=== PATIENT | male | born 1985 | race Caucasian/White ===

== ENCOUNTER → 2019-04-05 | Outpatient (CLI) | payer OTHER ==
--- NOTE | 2019-04-05 09:01 | MR ---
EXAMINATION TYPE: MR lumbar spine wo con DATE OF EXAM: 04/05/2019 COMPARISON: NONE HISTORY: Lumbar disc prolapse with radiculopathy per order. Low back pain intermittent for 11 months going into right buttocks and thigh. TECHNIQUE: Multiplanar, multisequence imaging of the lumbar spine is performed without IV contrast. I V contrast not given as requested as patient refused. FINDINGS: Sagittal images of the lumbar spine show vertebral body heights and alignment to appear sat isfactory. Mild disc space narrowing and disc desiccation L4-L5 level.. Mild disc space narrowing L5- S1 level with normal hydration. The conus medullaris is normal in position and signal. The bone mar row signal intensity is within normal limits. Axial images show the T12-L1, L1-L2, and L2-L3 levels all to appear within normal limits. Axial images at the L3-L4 level mild broad disc bulge with right paracentral disc protrusion effacing anterior thecal sac on axial image 13, bilateral neural foramina remain patent. Axial images at L4-L5 level shows broad disc bulge with right paracentral/foraminal disc protrusion c omponent effacing anterolateral thecal sac on axial image 9, there is mild bilateral anterior inferio r neural foraminal narrowing. Axial images at L5-S1 level without within normal limits. Paraspinal muscle bulk is preserved. IMPRESSION: Right eccentric disc herniations at the L3-L4 and L4-L5 levels. No definitive exiting ner ve encroachment is identified.
== END | disposition home or self-care (01) ==
LOC: RADMRIMAIN 08:12
PROVIDERS: ATTEND Family Medicine
DX: M51.26 Other intervertebral disc displacement, lumbar region (principal)
CPT/HCPCS: 72148

== ENCOUNTER → 2023-03-29 | Outpatient (CLI) | payer OTHER ==
[2023-03-29 13:48] LABS: Basophils # (A) 0.02 X 10*3/uL (0.00-0.10); Basophils % (A) 0.4 %; Eosinophils # (A) 0.04 X 10*3/uL (0.04-0.35); Eosinophils % (A) 0.8 %; HCT 50.5 % (39.6-50.0); HGB 17.3 d/dL (13.0-17.0); Lymphocytes # (A) 1.97 X 10*3/uL (0.90-5.00); Lymphocytes % (A) 38.3 %; MCHC 34.3 d/dL (32.0-37.0); MCV 93.3 FL (80.0-97.0); Mean Platelet Volume 12.3 FL (9.5-12.2); Monocytes # (A) 0.44 X 10*3/uL (0.20-1.00); Monocytes % (A) 8.5 %; NRBC Per 100 WBC 0 X 10*3/uL (0.00-0.01); Neutrophils # (A) 2.65 X 10*3/uL (1.80-7.70); Neutrophils % (A) 51.4 %; Platelet Count 198 X 10*3/uL (140-440); RBC 5.41 X 10*6/uL (4.40-5.60); RDW 11.8 % (11.5-14.5); WBC 5.15 X 10*3/uL (4.50-10.00)
[2023-03-29 14:13] LABS: Chol/HDL Ratio 5.23 Ratio; Iron 100 UG/DL (65-175); LDL Cholesterol,Calculated 205.9 mg/dL (0.0-131.0)
[2023-03-29 14:18] LABS: ALT 40 U/L (10-49); AST 27 U/L (14-35); Albumin 4.9 d/dL (3.8-4.9); Albumin/Globulin Ratio 2.23 Ratio (1.60-3.17); Alkaline Phosphatase 61 U/L (41-126); BUN/Creat Ratio 20.67 Ratio (12.00-20.00); Blood Urea Nitrogen 18.6 mg/dL (9.0-27.0); Carbon Dioxide 25.7 mmol/L (21.6-31.8); Chloride 100 mmol/L (96-109); Globulin 2.2 d/dL (1.6-3.3); Glucose 95 mg/dL (70-110); Potassium 4.5 mmol/L (3.5-5.5); Sodium 138 mmol/L (135-145); Total Bilirubin 1.3 mg/dL (0.3-1.2); Total Protein 7.1 d/dL (6.2-8.2)
== END | disposition home or self-care (01) ==
LOC: LABWHC1 06:58
PROVIDERS: ATTEND Family Medicine
DX: R53.83 Other fatigue (principal); R41.9 Unspecified symptoms and signs involving cognitive functions and awareness
CPT/HCPCS: 36415; 80053; 80061; 82306; 82607; 82728; 83540; 84403; 84443; 85025

== ENCOUNTER → 2023-08-10 | Outpatient (CLI) | payer OTHER ==
--- NOTE | 2023-08-10 16:31 | P.SLEEP ---
History of Present Illness DATE: 06/09/2024 CONSULTATION/NEW PATIENT EVALUATION HISTORY OF PRESENT ILLNESS/SLEEP-WAKE EVALUATION: 38 year old gentleman had been evaluated in the sleep center for possible obstructive sleep apnea hypopnea syndrome and significant excessive daytime sleepiness. SLEEP SCHEDULE: Usually sleep schedule from 9:30 PM to 5 AM on weekdays and from 10:30 PM to 7 AM on weekend. FALLING ASLEEP: Sometimes patient has difficulties with falling asleep, has TV set and bedroom. DURING SLEEP: Patient usually sleeps on the side position with snoring and multiple awakenings from sleep with nocturia, dry mouth, episodes of panic attacks, sleep talking, grinding teeth. No history of hypnogogical hallucinations, sleep paralysis, or cataplexy. DURING THE DAY/WAKE STATE: In the morning patient wake up tired, has difficulties to pay attention, falling asleep during the day, has problems with memory, concentration, irritability, depression, anxiety. [place] sleepiness scale is in extremely high range of 21. Patient may take up to 3 naps during the day. 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 PAST SURGICAL HISTORY: Right shoulder surgery. MEDICATIONS: Adderall 10 mg once a day presently. SOCIAL HISTORY: Negative for smoking, alcohol consumption occasional. FAMILY HISTORY: Hypertension, heart problems, fibromyalgia, cancer, diabetes. REVIEW OF SYSTEMS: Snoring, multiple awakenings from sleep, significant sleepiness during the day. No fevers. No double vision. No recent chest pain. No shortness of breath. No abdominal pain. No bleeding episodes. No blood in urine. No seizure episodes. PHYSICAL EXAMINATION: GENERAL: A pleasant patient without any distress. VITAL SIGNS: BP 122/79, HR 85, RR 14, weight 204.8 pounds, height 5 foot 9.5 inches, body mass index 29.6. HEENT: PERRLA, EOMI. Evaluation of oropharynx showed tongue protrudes midline, low position of soft palate Mallampati 23. Significant hypertrophy of tonsils. NECK: Supple. No JVD. Thyroid is not palpable. 15-1/4 inches in circumference. LUNGS: Clear to percussion and to auscultation. Good air exchange. No wheezing or rhonchi. HEART: S1, S2 regular. No murmurs, gallops or rubs. ABDOMEN: Soft and nontender. Bowel sounds are present. No organomegaly appre ciated. EXTREMITIES: No clubbing or cyanosis. TEASEL GIG OPERATOR: Awake, alert, and oriented x3. Cranial nerves 2 to 7 intact. There is no fasciculation or atrophy noted. No focal deficits observed. ASSESSMENT: 1. Snoring, multiple awakenings from sleep, small oropharyngeal airspace with a significant hypertrophy of tonsils, sleepiness. Obstructive sleep apnea hypopnea syndrome. 2. Significant excessive daytime sleepiness with the extremely high [place] Sleepiness Scale of 21, positive vivid dreams during naps. Differential diagnosis include narcolepsy type II. 3. 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 4. Significant hypertrophy of tonsils. History of tonsillitis episodes. 5 status post right shoulder surgery in the past. PLAN: 1. Polysomnography for evaluation of patient's breathing during sleep. Multiple sleep latency test, if polysomnogram will be negative for obstructive sleep apnea hypopnea syndrome. 2. Following plan after reading sleep study 3. No driving if patient feels any sleepiness. Patient is aware of civil and criminal liability for unsafe driving. 4. Sleep hygiene with regular sleep time for at least 7.5-8 hours. 5. Watching weight. Thank you very much for referring this patient for consultation. Sincerely, Solo Paulino MD, PhD, FAASM. Diplomat of [place] [employer], Sleep Medicine Board by [employer] [place] [employer] [facility] [place] [facility] - Sleep Note Sleep Note: Temperature: Pulse Rate: Respiratory Rate: Blood Pressure: SpO2: Height: Weight: BMI: Neck Circumference:
== END ==
LOC: 3 N SLEEP 15:38
PROVIDERS: ATTEND Internal Medicine
DX: G47.33 Obstructive sleep apnea (adult) (pediatric) (principal); G47.10 Hypersomnia, unspecified; G37.9 Demyelinating disease of central nervous system, unspecified; J35.1 Hypertrophy of tonsils; Z98.890 Other specified postprocedural states
CPT/HCPCS: 99211

== ENCOUNTER 2023-08-14 16:22 | Emergency (ER) | payer OTHER ==
[2023-08-14 16:45] VITALS: RESP 18
--- NOTE | 2023-08-14 17:17 | ED ---
General Adult HPI - General Source: patient, family, RN notes reviewed Mode of arrival: wheelchair Limitations: no limitations <Jessica Sheffield - Last Filed: 08/14/23 17:16> - General Source: patient, family, RN notes reviewed Limitations: no limitations <Hesham Lambert - Last Filed: 08/14/23 20:29> - General Chief complaint: Nausea/Vomiting/Diarrhea Stated complaint: high blood pressure Time Seen by Provider: 08/14/23 17:16 - History of Present Illness Initial comments: Patient is a 38-year-old male presented to ER with chief complaint of dizziness. Around 3 PM today he started feeling extremely dizzy and had episodes of vomiting. Patient states he believes this is a vertigo flareup. Patient recently diagnosed with MS and follows up closely with neurology at [facility]. Admits to chills denies fevers. (Jessica Sheffield) Patient is a pleasant 38-year-old male present to the emergency department with dizziness and vomiting. Onset was around 330 today. Patient states symptoms are severe. Patient has had similar episodes multiple times. Patient has been diagnosed with MS. Patient has had previous brain imaging and does see neurology. Patient was diagnosed with MS. No headache. No weakness. No confusion. (Hesham Lambert) - Related Data Previous Rx's Medication Instructions Recorded Metoclopramide HCl [Reglan] 10 mg PO Q6HR PRN #15 tablet 08/14/23 Allergies Allergy/AdvReac Type Severity Reaction Status Date / Time No Known Allergies Allergy Verified 08/14/23 19:00 Review of Systems ROS Other: All systems not noted in ROS Statement are negative. <Jessica Sheffield - Last Filed: 08/14/23 17:16> ROS Other: All systems not noted in ROS Statement are negative. Constitutional: Denies: fever Eyes: Denies: eye pain ENT: Denies: ear pain Respiratory: Denies: cough, dyspnea Cardiovascular: Denies: chest pain Endocrine: Denies: fatigue Gastrointestinal: Reports: nausea, vomiting. Denies: abdominal pain Genitourinary: Denies: urgency Musculoskeletal: Denies: back pain Skin: Denies: rash Neurological: Reports: vertigo. Denies: headache, weakness, confusion <Hesham Lambert - Last Filed: 08/14/23 20:29> ROS Statement: Those systems with pertinent positive or pertinent negative responses have been documented in the HPI. Past Medical History History of Any Multi-Drug Resistant Organisms: None Reported Past Surgical History: Orthopedic Surgery Additional Past Surgical History / Comment(s): shoulder surgery Past Psychological History: No Psychological Hx Reported Smoking Status: Never smoker Past Alcohol Use History: Rare Past Drug Use History: None Reported <Jessica Sheffield - Last Filed: 08/14/23 17:16> General Exam Limitations: no limitations <Jessica Sheffield - Last Filed: 08/14/23 17:16> Limitations: no limitations General appearance: alert, in no apparent distress Head exam: Present: atraumatic Eye exam: Present: normal appearance, PERRL, EOMI Neck exam: Present: normal inspection Respiratory exam: Present: normal lung sounds bilaterally Cardiovascular Exam: Present: regular rate, normal rhythm GI/Abdominal exam: Present: soft. Absent: tenderness Extremities exam: Present: normal inspection Neurological exam: Present: alert, oriented X3, CN II-XII intact. Absent: motor sensory deficit Expanded Neurological exam: Present: protecting the airway Speech: Present: fluid speech Cranial nerves: EOM's Intact: Normal Motor strength exam: RUE: 5, LUE: 5, RLE: 5, LLE: 5 Eye Response: (4) open spontaneously Motor Response: (6) obeys commands Verbal Response: (5) oriented Psychiatric exam: Present: normal affect, normal mood Skin exam: Present: normal color <Hesham Lambert - Last Filed: 08/14/23 20:29> - General Exam Comments Initial Comments: Visual Physical Exam Vital signs reviewed General: Well-appearing, nontoxic, no acute distress. Head: Normocephalic, atraumatic Eyes: PERRLA, EOMI ENT: Airway patent Chest: Nonlabored breathing Skin: No visual rash, normal skin tone Neuro: Alert and oriented 3 Musculoskeletal: No gross abnormalities (Jessica Sheffield) Course Vital Signs 08/14/23 08/14/23 16:27 19:08 Temperature 98.2 F Pulse Rate 74 Respiratory 18 Rate Blood Pressure 149/104 124/79 O2 Sat by Pulse 97 Oximetry EKG Findings - EKG Results: EKG: interpreted by ERMD (Right axis.), sinus rhythm, normal QRS, normal ST/T <Hesham Lambert - Last Filed: 08/14/23 20:29> Medical Decision Making <Jessica Sheffield - Last Filed: 08/14/23 17:16> - Lab Data Result diagrams: 08/14/23 17:35 08/14/23 17:35 <Hesham Lambert - Last Filed: 08/14/23 20:29> - Medical Decision Making Work note (Jessica Sheffield) Was pt. sent in by a medical professional or institution (, PA, SHOWCASE TRIMMER, urgent care, hospital, or usp...) When possible be specific @ -No Did you speak to anyone other than the patient for history (EMS, parent, family, police, friend...)? What history was obtained from this source @ - is present and helps provide history including previous history of similar episodes multiple times as well as workup with neurologist and previous imaging Did you review nursing and triage notes (agree or disagree)? Why? @ -I reviewed and agree with nursing and triage notes Were old charts reviewed (outside hosp., previous admission, EMS record, old EKG, old radiological studies, urgent care reports/EKG's, usp records)? Report findings @ -No old charts were reviewed Differential Diagnosis (chest pain, altered mental status, abdominal pain women, abdominal pain men, vaginal bleeding, weakness, fever, dyspnea, syncope, headache, dizziness, GI bleed, back pain, seizure, CVA, palpatations, mental health, musculoskeletal)? @ -Differential Dizziness: Benign paroxysmal positional Vertigo, Menieres disease, otitis media, acoustic neuroma, vertebrobasilar insufficiency, cerebellar stroke, encephalitis, hypovolemic, arrhythmia, coronary artery syndrome, anemia, this is not meant to be an all-inclusive list EKG interpreted by me (3pts min.). @ -As above X-rays interpreted by me (1pt min.). @ -None done CT interpreted by me (1pt min.). @ -None done U/S interpreted by me (1pt. min.). @ -None done What testing was considered but not performed or refused? (CT, X-rays, U/S, labs)? Why? @ -Consider CT scan however patient has had previous imaging with similar symptoms What meds were considered but not given or refused? Why? @ -None Did you discuss the management of the patient with other professionals (professionals i.e. , PA, SHOWCASE TRIMMER, lab, RT, psych nurse, social sciences lecturer, liturgical music director, teacher, client sales and service officer, caser shoe parts)? Give summary @ -No Was smoking cessation discussed for >3mins.? @ -No Was critical care preformed (if so, how long)? @ -No Were there social determinants of health that impacted care today? How? (Homelessness, low income, unemployed, alcoholism, drug addiction, transportation, low edu. Level, literacy, decrease access to med. care, custodial, rehab)? @ -No Was there de-escalation of care discussed even if they declined (Discuss DNR or withdrawal of care, Hospice)? DNR status @ -No What co-morbidities impacted this encounter? (DM, HTN, Smoking, COPD, CAD, Cancer, CVA, ARF, Chemo, Hep., AIDS, mental health diagnosis, sleep apnea, morbid obesity)? @ -None Was patient admitted / discharged? Hospital course, mention meds given and route, prescriptions, significant lab abnormalities, going to OR and other pertinent info. @ -Patient reevaluated and significantly improved. Patient and family requesting discharge home. Patient sitting upright in bed stating symptoms have resolved. Patient family are updated on results and need for follow-up Undiagnosed new problem with uncertain prognosis? @ -No Drug Therapy requiring intensive monitoring for toxicity (Heparin, Nitro, Insulin, Cardizem)? @ -No Were any procedures done? @ -No Diagnosis/symptom? @ -Vertigo Acute, or Chronic, or Acute on Chronic? @ -Acute Uncomplicated (without systemic symptoms) or Complicated (systemic symptoms)? @ -Default Side effects of treatment? @ -No Exacerbation, Progression, or Severe Exacerbation? @ -No Poses a threat to life or bodily function? How? (Chest pain, [place], [place], pneumonia, PE, COPD, DKA, ARF, appy, cholecystitis, CVA, Diverticulitis, Homicidal, Suicidal, threat to staff... and all critical care pts) @ -No (Hesham Lambert) - Lab Data Lab Results 08/14/23 08/14/23 08/14/23 Range/Units 17:35 17:35 17:35 WBC 6.8 (3.8-10.6) k/uL RBC 5.21 (4.30-5.90) m/uL Hgb 16.9 (13.0-17.5) gm/dL Hct 47.9 (39.0-53.0) % MCV 91.9 (80.0-100.0) fL MCH 32.4 (25.0-35.0) pg MCHC 35.2 (31.0-37.0) g/dL RDW 12.0 (11.5-15.5) % Plt Count 145 L (150-450) k/uL MPV 10.1 Sodium 141 (137-145) mmol/L Potassium 4.0 (3.5-5.1) mmol/L Chloride 106 (98-107) mmol/L Carbon Dioxide 21 L (22-30) mmol/L Anion Gap 14 mmol/L BUN 10 (9-20) mg/dL Creatinine 0.65 L (0.66-1.25) mg/dL Est GFR (CKD-EPI)AfAm >90 (>60 ml/min/1.73 sqM) Est GFR (CKD-EPI)NonAf >90 (>60 ml/min/1.73 sqM) Glucose 108 H (74-99) mg/dL Calcium 9.7 (8.4-10.2) mg/dL Total Bilirubin 1.5 H (0.2-1.3) mg/dL AST 36 (17-59) U/L ALT 35 (4-49) U/L Alkaline Phosphatase 63 (38-126) U/L Total Protein 7.7 (6.3-8.2) g/dL Albumin 5.0 (3.5-5.0) g/dL Influenza Type A (PCR) Not Detected (Not Detectd) Influenza Type B (PCR) Not Detected (Not Detectd) RSV (PCR) Not Detected (Not Detectd) SARS-CoV-2 (PCR) Not Detected (Not Detectd) Disposition <Jessica Sheffield - Last Filed: 08/14/23 17:16> Is patient prescribed a controlled substance at d/c from ED?: No Time of Disposition: 20:28 <Hesham Lambert - Last Filed: 08/14/23 20:29> Clinical Impression: Vertigo Disposition: HOME SELF-CARE Condition: Stable Instructions (If sedation given, give patient instructions): Vertigo (ED) Additional Instructions: [id number] Antivert as needed. Please do follow-up with your neurologist and primary care physician in the next 1 or 2 days for recheck. Return for weakness, confusion, uncontrolled vomiting, worsening symptoms or other concerns. Prescription for Reglan has been sent to pharmacy Prescriptions: Metoclopramide HCl [Reglan] 10 mg PO Q6HR PRN #15 tablet PRN Reason: Nausea Referrals: Andrei Pink MD [STAFF PHYSICIAN] - 1-2 days
[2023-08-14 17:55] LABS: HCT 47.9 % (39.0-53.0); HGB 16.9 gm/dL (13.0-17.5); MCH 32.4 pg (25.0-35.0); MCHC 35.2 g/dL (31.0-37.0); MCV 91.9 fL (80.0-100.0); Mean Platelet Volume 10.1; Platelet Count 145 k/uL (150-450); RBC 5.21 m/uL (4.30-5.90); WBC 6.8 k/uL (3.8-10.6)
[2023-08-14 18:10] LABS: ALT 35 U/L (4-49); AST 36 U/L (17-59); African American GFR (CKD) >90 (>60 ml/min/1.73 sqM); Alkaline Phosphatase 63 U/L (38-126); Anion Gap 14 mmol/L; Blood Urea Nitrogen 10 mg/dL (9-20); Calcium 9.7 mg/dL (8.4-10.2); Carbon Dioxide 21 mmol/L (22-30); Chloride 106 mmol/L (98-107); Glucose 108 mg/dL (74-99); Non-African American GFR(CKD) >90 (>60 ml/min/1.73 sqM); Sodium 141 mmol/L (137-145); Total Bilirubin 1.5 mg/dL (0.2-1.3); Total Protein 7.7 g/dL (6.3-8.2)
[2023-08-14] MEDS: MECLIZINE 12.5 MG TAB PO STA (19:03)
[2023-08-14] MEDS: SODIUM CHLORIDE 0.9% 1,000 ML IV STA (19:03)
[2023-08-14] MEDS: METOCLOPRAMIDE 5 MG/ML 2 ML VIAL IVP STA (19:05)
[2023-08-14 21:23] VITALS: BP 131/77; PULSE 87; TEMP 98
== END 2023-08-14 21:03 | disposition home or self-care (01) ==
LOC: EC 16:22
DX: R42 Dizziness and giddiness (principal); I10 Essential (primary) hypertension; Z20.822 Contact with and (suspected) exposure to COVID-19
CPT/HCPCS: 36415; 93005; 80053; 85027; 87636; 99284; 96374; 96361; J2765

== ENCOUNTER 2023-10-17 19:13 | Outpatient (CLI) | payer OTHER ==
--- NOTE | 2023-10-19 11:29 | P.PCN ---
Description of Procedure: POLYSOMNOGRAPHY REPORT PROCEDURE(S)/DATE(S): Polysomnography 10/17/2023 CLINICAL: Patient has been seen in the sleep center for evaluation of obstructive sleep apnea-hypopnea syndrome. Please see my consultation. Sleep study has been done for evaluation of patient breathing during the sleep. PROCEDURE: The standard montage for clinical polysomnography included the electroencephalogram, the electrooculogram, the mentalis surface electromyography and Lead II cardiography. The respiratory battery consisted of measurements of nasal/buccal air flow, pressure transducer measurements from nose, thoracic and/or abdominal effort and intercostal surface electromyography. Video monitoring has been done to check for any parasomnia events. Nocturnal oxyhemoglobin saturations were obtained by finger oximetry. Step-martinez titration with positive airway pressure was utilized to control the respiratory events, if necessary. RESULTS: During the diagnostic sleep study sleep efficiency was decreased to 76.7%. Latency to sleep onset was in short range 7.5 min. Sleep architecture showed stage NI was short 2.4%, Delta sleep was normal 24.2%, REM sleep was normal 22.6%. Respiratory channel showed 0 obstructive apneas, 0 mixed apneas, 0 central apneas, 42 hypopneas with lowest oxygen level 88%. Total apnea hypopnea index was 6.7. Heart rate was in the range between 66 and 81, average 73. EMG showed 3.3 periodic limb movements per hour with 1.3 micro-arousals per hour. IMPRESSIONS: 1. Obstructive sleep apnea hypopnea syndrome in mild range. Patient presents with symptoms of significant excessive daytime sleepiness, [place] Sleepiness Scale increased to 19. 2. No significant periodic limb movements have been documented. Please see other impressions from consultation PLAN: 1. The patient will have AutoPAP treatment for correction of respiratory abnormalities during the sleep. 2. Losing weight . 3. Sleep hygiene with regular time in bed for at least 7-1/2 hours. 4. No driving if feeling sleepiness. 5. I will see patient for follow-up visit to evaluate clinical response on treatment, compliance with treatment and [place] adjustments related to mask fitting pressure and humidification. Thank you very much for allowing me to participate in the management of your patient. Sincerely, Solo Paulino MD, PhD, FAASM. Diplomat of [place] [employer], Sleep Medicine Board by [place] [employer] [facility] [place] [facility] [place]
== END 2023-10-18 09:15 | disposition home or self-care (01) ==
LOC: 3 N SLEEP 19:13
PROVIDERS: ATTEND Internal Medicine
DX: G47.33 Obstructive sleep apnea (adult) (pediatric) (principal); G47.10 Hypersomnia, unspecified
CPT/HCPCS: 95810

== ENCOUNTER → 2023-12-07 | Outpatient (CLI) | payer OTHER ==
[2023-12-07 10:51] VITALS: BP 119/83; PULSE 64; RESP 16; TEMP 98
--- NOTE | 2023-12-07 11:42 | P.PROGSL ---
Subjective DATE: 12/07/2023 FOLLOW UP VISIT. Patient with obstructive sleep apnea hypopnea syndrome return to sleep center for follow-up visit. Recently patient had sleep study which documented obstructive sleep apnea hypopnea syndrome. Patient was initiated on PAP therapy and today is first visit after treatment was started. I explained to the patient results of polysomnogram. Patient has mild obstructive sleep apnea hypopnea syndrome, but significant sleepiness during the day. After using CPAP for 6 hours he feels more refreshed on the following day. Unfortunately secondary to mask problems patient was not able to use CPAP unit every night Patient was able to use PAP equipment every night for the whole night. [place] sleepiness scale is 13, which is increased but better than during consultation when it was 21. I checked information from PAP unit. PAP unit pressure 5-14, average 8.3 cm H2O. Usage is 50% of the nights, average 3 hours hours per night. Leak is 12.4 l/m, which is in acceptable range. Apnea Hypopnea Index is 0.7, which is normal. MEDICATIONS:1. Adderall 10 mg once a day in the morning. During physical exam: GENERAL: A pleasant patient without any distress. VITAL SIGNS: Please see below. HEENT: PERRLA, EOMI.low position of soft palate, Mallapati 2-3 , hypertrophy of tonsils. NECK: Supple. No JVD. LUNGS: Clear to percussion and to auscultation. Good air exchange. No wheezing or rhonchi. HEART: S1, S2 regular. ABDOMEN: Soft and nontender.[] EXTREMITIES: No clubbing or cyanosis. SUPERVISOR AGENCY APPOINTMENTS: Awake, alert, and oriented x3. No focal deficit. Impressions: 1. Obstructive sleep apnea-hypopnea syndrome. Patient has difficulties with mask. Patient feels more refreshed after using CPAP for 6 hours at night. 2. Sleepiness during the day, presently [place] Sleepiness Scale is 13, which improved comparing with the consultation when it was 21. 3. History of brain lesions by results of MRI, clinically isolated syndrome. 4. Status post right shoulder surgery in the past. 5. Hypertrophy of tonsils. Plan: 1. Continue using PAP equipment every night for the whole night. Patient promised to follow recommendations. 2. We provided patient with AirFit F40 fullface mask. 3. PAP unit should stay lower then position of the head. 4. Advised patient to remove all remaining water from humidifier canister daily and make it dry after each usage. Refill canister with fresh distilled water before each usage. 5. Sleep hygiene with regular time in bed for at least 8 hours. 6. Precautions related to driving. No driving if feel any sleepiness. 7. I will maintain prescription for PAP supplies including mask, tube, filters. 8. Follow up visit in 4 months. 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 9. Watching weight. 10. If patient will continue to feel sleepiness while using CPAP every night for the whole night we will proceed with multiple sleep latency test for evaluation of possible idiopathic hypersomnia or narcolepsy. Thank you very much for allowing me to participate in the management of your patient. Solo Paulino MD, PhD, FAASM. Diplomat of [place] [employer] Medicine, Sleep Medicine Board by [place] [employer] [facility] [employer] [place] [facility] [place] Objective - Vital Signs Vital Signs: Vital Signs Temp 98 F 12/07/23 10:51 Pulse 64 12/07/23 10:51 Resp 16 12/07/23 10:51 BP 119/83 12/07/23 10:51 Pulse Ox 96 12/07/23 10:51 FiO2 Intake & Output 12/06/23 12/07/23 12/07/23 18:59 06:59 18:59 Weight 92.079 kg Home Medications: Home Medications Medication Instructions Recorded Confirmed Type Dextroamphetamine/Amphetamine 10 mg PO DAILY 12/07/23 12/07/23 History [Adderall]
== END | disposition home or self-care (01) ==
LOC: 3 N SLEEP 10:24
PROVIDERS: ATTEND Internal Medicine
DX: G47.33 Obstructive sleep apnea (adult) (pediatric) (principal); J35.1 Hypertrophy of tonsils; Z98.890 Other specified postprocedural states; Z99.89 Dependence on other enabling machines and devices
CPT/HCPCS: 99212